=== PATIENT | male | born 1985 | race Hispanic/Latino ===

== ENCOUNTER 2017-12-13 10:22 | Emergency (ER) | payer OTHER ==
[~2017-12-13] VITALS: Ht 182.9 cm; Wt 100.1 kg
[2017-12-13] MEDS ORDERED: EPIPEN ADU0.3 MG/0.3 IM (11:52)
[2017-12-13 12:11] VITALS: BP 140/80
== END 2017-12-13 12:11 | disposition home or self-care (01) ==
LOC: EME 10:22
DX: T78.05XA Anaphylactic reaction due to tree nuts and seeds, initial encounter (principal); Z91.018 Allergy to other foods; Z87.820 Personal history of traumatic brain injury; Z87.891 Personal history of nicotine dependence
CPT/HCPCS: 99281; 99284

== ENCOUNTER 2018-03-19 19:14 | Emergency (ER) | payer OTHER ==
[~2018-03-19] VITALS: Ht 182.9 cm; Wt 98.4 kg
[~2018-03-19 19:14] MED LIST: EPIPEN ADU0.3 MG/0.3 IM
[2018-03-19] MEDS ORDERED: TRAMADOL HCL50 MG PO (21:41)
[2018-03-19] MEDS ORDERED: MOTRIN800 MG PO (21:41)
[2018-03-19 21:53] VITALS: BP 129/89
== END 2018-03-19 22:13 | disposition home or self-care (01) ==
LOC: EME 19:14 → RME 19:14
DX: M25.572 Pain in left ankle and joints of left foot (principal); M79.605 Pain in left leg; X58.XXXA Exposure to other specified factors, initial encounter; Y99.0 Civilian activity done for income or pay; Z87.891 Personal history of nicotine dependence
CPT/HCPCS: 73610; 73630; 93971; 99281; 99284; J3010